=== PATIENT | male | born 2000 | race Two or more races ===

== ENCOUNTER 2021-02-15 23:24 | Emergency (ER) | payer OTHER ==
[~2021-02-15] VITALS: Ht 177.8 cm; Wt 81.6 kg
[2021-02-16 05:50] VITALS: BP 122/68
== END 2021-02-16 06:04 | disposition home or self-care (01) ==
LOC: ER 23:24
DX: J02.9 Acute pharyngitis, unspecified (principal); Z53.21 Procedure and treatment not carried out due to patient leaving prior to being seen by health care provider

== ENCOUNTER 2024-04-01 07:35 | Emergency (ER) | payer MEDICAID ==
[~2024-04-01] VITALS: Ht 177.8 cm; Wt 89.3 kg
[2024-04-01 07:50] LABS: Urine Bacteria None Seen /hpf (None Seen)
[2024-04-01 08:40] LABS: Urine Blood Negative /uL (Negative); Urine Clarity Clear (Clear); Urine Color Yellow (Yellow); Urine Protein, UAD 1+ (Negative); Urine Specific Gravity 1.029 (1.001-1.035); Urine Urobilinogen Normal (Negative); Urine WBC <1 /hpf (0 - 3); Urine pH 8.5 (5.0-9.0)
[2024-04-01 08:52] LABS: Basophils # (auto) 0 10 ^3/uL (0-0.2); Basophils % (auto) 0.2 % (0.0-2.0); Eosinophils # (auto) 0 10 ^3/uL (0-0.8); Eosinophils % (auto) 0.1 % (0.0-7.0); Hematocrit 48.4 % (41.0-53.0); Hemoglobin 16.9 g/dL (13.5-17.5); Lymphocytes # (auto) 0.4 10 ^3/uL (0.4-5.4); Lymphocytes % (auto) 2.7 % (10.0-50.0); Mean Corpuscular Hemoglobin 30.2 pg (28.0-32.0); Mean Corpuscular Hgb Conc. 34.9 g/dL (32.0-36.0); Mean Corpuscular Volume 86.3 fL (80.0-100.0); Monocytes # (auto) 0.7 10 ^3/uL (0-1.3); Monocytes % (auto) 4.1 % (0.0-12.0); Neutrophils % (auto) 92.9 % (37.0-80.0); Red Blood Cells 5.61 10^6/uL (4.5-5.90); Red Cell Distribution Width 12.7 % (11.8-14.3); White Blood Cell 16.1 10^3/uL (4.4-10.8)
[2024-04-01 09:24] LABS: Alanine Aminotransferase 24 U/L (7-40); Albumin 4.5 g/dL (3.2-4.8); Alkaline Phosphatase 90 U/L (46-116); Anion Gap 8 (5-15); Aspartate Aminotransferase 22 U/L (13-40); BUN/Creatinine Ratio 17.5 (10.0-20.0); Blood Urea Nitrogen 18 mg/dL (9-23); Calcium 9.8 mg/dL (8.7-10.4); Carbon Dioxide 26 mmol/L (20-30); Chloride 105 mmol/L (98-107); Glucose 114 mg/dL (74-106); Potassium 4.2 mmol/L (3.5-5.1); Sodium 139 mmol/L (136-145)
[2024-04-01 09:25] LABS: Bilirubin, Total 0.9 mg/dL (0.2-1.0); Total Protein 7.7 g/dL (5.7-8.2)
[2024-04-01] MEDS: METOCLOPRAMIDE HCL 5MG/ml INJ 2ml VIAL IV ONE (11:09)
[2024-04-01 11:10] VITALS: BP 118/73; PULSE 80; RESP 16; TEMP 97.8; O2SAT 100
[2024-04-01] MEDS: SODIUM CHLORIDE 0.9% 1,000 ML IVB ONE (11:10)
[2024-04-01] MEDS ORDERED: PROC10TA6 PO (11:18)
== END 2024-04-01 12:06 | disposition home or self-care (01) ==
LOC: ER 07:35
DX: K52.1 Toxic gastroenteritis and colitis (principal); E86.0 Dehydration
CPT/HCPCS: 36415; 80053; 81001; 85025; 96361; 96374; 99283; J2765; J7030